=== PATIENT | female | born 1990 | race Two or more races ===

== ENCOUNTER → 2025-09-28 | Outpatient (CLI) | payer MEDICAID, SELFPAY ==
--- NOTE | 2025-09-28 | XR_ITS ---
Examination: Diagnostic digital mammography, unilateral, right Computer aided detection 3-D breast Tomosynthesis, unilateral Date and time of exam: September 28, 2025, 0811 hours INDICATIONS: Palpable lump right breast noticed beginning 1 week ago, family history of breast cancer Technique: Nonmagnified MLO, CC views of the right breast have been obtained, reconstructed from 3-D Tomosynthesis images. R2 computer aided detection program utilized for evaluation of suspicious masses and/or abnormal calcifications. 3-D Tomosynthesis images obtained. Findings: The breast is heterogeneously dense, which may obscure small masses 7 mm nodule lobular margins at the palpable marker site lower inner right breast Impression: BI-RADS category 3: Probably benign findings Recommend 1 additional 6-month right mammogram follow-up to document stability of nodule described above
--- NOTE | 2025-09-28 07:50 | XR_ITS ---
Examination: Breast ultrasound, unilateral, right complete Date and time of exam: September 28, 2025, 0757 hours MEDICATIONS: Palpable lump right breast 12 o'clock position noticed beginning 6 days ago. Technique: Real-time lemus scale ultrasonographic imaging performed right breast including all 4 quadrants as well as nipple retroareolar and axillary region. Findings: 12:00 hypoechoic nodule 4 x 5 mm 5:00 cyst 9 x 8 mm 10:00 oval mass hyperechoic 6 x 5 mm Smaller cysts IMPRESSION: BI-RADS Category 3: Probably benign findings Recommend 1 additional 6-month right breast sonogram follow-up to document stability of solid nodules described above
== END | disposition home or self-care (01) ==
PROVIDERS: PCP Family Medicine; Referring Provider Physician Assistant Medical; Visit Provider Physician Assistant Medical
DX: R92.321 Mammographic fibroglandular density, right breast (principal); N63.14 Unspecified lump in the right breast, lower inner quadrant; N63.15 Unspecified lump in the right breast, overlapping quadrants; N63.11 Unspecified lump in the right breast, upper outer quadrant
CPT/HCPCS: 76641; 77061; 77065; G0279